=== PATIENT | male | born 1960 | race Hispanic/Latino ===

== ENCOUNTER 2019-08-13 06:34 | Day surgery (SDC) | payer MEDICAID ==
[~2019-08-13] VITALS: Ht 167.6 cm; Wt 75.7 kg
[~2019-08-13 06:34] MED LIST: FERS325 PO; FURO20TA4 PO; LACT10SO9 PO; OMEP-50 PO; PROP10TA10 PO; SODIUM CHLORIDE 0.9% 1000ML 0 ML IV ONE; SODIUM CHLORIDE 0.9% 1000ML 1,000 ML IV ONE; SPIR25TA6 PO
[2019-08-13] MEDS ORDERED: SERT25TA5 PO (08:07)
[2019-08-13] MEDS ORDERED: VITAMIN B 12 PO (08:07)
[2019-08-13 08:22] VITALS: BP 129/73
[2019-08-13 08:22] LABS: BASOPHILS % (AUTO) 1.6 % (0.0-5.0); EOSINOPHILS % (AUTO) 5.8 % (0.0-8.0); HEMATOCRIT 45.1 % (42-54); MEAN CORPUSCULAR HEMOGLOBIN 37.8 pg (27.0-33.0); MEAN CORPUSCULAR HGB CONC 34.6 g/dL (32.0-36.0); MEAN CORPUSCULAR VOLUME 109.2 fL (79-99); MONOCYTES % (AUTO) 7.2 % (3.0-13.0); NEUTROPHILS % (AUTO) 48.4 % (40.0-77.0); NUCLEATED RED BLOOD CELLS 0.1 % (0.0-0.19); PLATELET COUNT (AUTO) 129 K/uL (130-400); RED BLOOD CELL COUNT(AUTO) 4.13 MIL/uL (4.50-6.20); RED CELL DISTRIBUTION WIDTH 14.7 % (11.0-15.5); WHITE BLOOD COUNT (AUTO) 4.5 K/uL (4.8-10.8)
[2019-08-13 08:34] LABS: INR 1.28 (0.85-1.15); PROTHROMBIN TIME 13.4 SEC (9.6-11.6)
[2019-08-13] MEDS ORDERED: PROPOFOL 10 MG/ML 20ML VIAL IV ONE (09:07)
== END 2019-08-13 10:20 | disposition home or self-care (01) ==
LOC: ENDO 06:34 → DAH 06:34 → ENDO 10:20
PROVIDERS: ATTEND Internal Medicine
DX: K29.50 Unspecified chronic gastritis without bleeding (principal); K21.0 Gastro-esophageal reflux disease with esophagitis; K25.9 Gastric ulcer, unspecified as acute or chronic, without hemorrhage or perforation; F17.210 Nicotine dependence, cigarettes, uncomplicated; B18.2 Chronic viral hepatitis C; F31.89 Other bipolar disorder; K74.60 Unspecified cirrhosis of liver; F19.20 Other psychoactive substance dependence, uncomplicated; Z72.89 Other problems related to lifestyle; Z90.49 Acquired absence of other specified parts of digestive tract; Z98.890 Other specified postprocedural states; Z79.899 Other long term (current) drug therapy; Z82.49 Family history of ischemic heart disease and other diseases of the circulatory system
CPT/HCPCS: 36415; 43239; 85025; 85610; 88305; A4606; J2704; J7030

== ENCOUNTER 2022-05-17 08:26 | Emergency (ER) | payer MEDICAID ==
[~2022-05-17] VITALS: Ht 165.1 cm; Wt 74.8 kg
[~2022-05-17 08:26] MED LIST changes: -OMEP-50 PO; +OMEP20CA12 PO; +SERT-438 PO; -SODIUM CHLORIDE 0.9% 1000ML 0 ML IV ONE; -SODIUM CHLORIDE 0.9% 1000ML 1,000 ML IV ONE; +VITAMIN B 12 PO
[2022-05-17] MEDS ORDERED: KETOROLAC 30MG VIAL (30MG/ML) IM ONE (09:30)
[2022-05-17] MEDS ORDERED: ORPHENADRINE CITRATE 30 MG/ML ML IM ONE (12:00)
[2022-05-17] MEDS ORDERED: LIDOCAINE 5% TOPICAL PATCH TP ONE (12:00)
[2022-05-17] MEDS ORDERED: CYCL5TAB PO (13:49)
[2022-05-17 13:57] VITALS: BP 142/58
[2022-05-19] MEDS ORDERED: TRAM50TA4 PO (10:13)
== END 2022-05-17 13:59 | disposition home or self-care (01) ==
LOC: EDH 08:26
DX: M62.838 Other muscle spasm (principal); T50.B95A Adverse effect of other viral vaccines, initial encounter; N18.9 Chronic kidney disease, unspecified; Z79.1 Long term (current) use of non-steroidal anti-inflammatories (NSAID); Z79.899 Other long term (current) drug therapy; Z90.49 Acquired absence of other specified parts of digestive tract; Y92.89 Other specified places as the place of occurrence of the external cause
CPT/HCPCS: 96372 ×2; 99284; J1885; J2360

== ENCOUNTER 2022-05-25 21:26 | Emergency (ER) | payer MEDICAID ==
[~2022-05-25] VITALS: Ht 165.1 cm; Wt 77.1 kg
[~2022-05-25 21:26] MED LIST changes: +CYCL5TAB PO; +TRAM50TA4 PO
[2022-05-25] MEDS ORDERED: HYDROCODONE/ACETAMINOPHEN 5/325 MG TAB PO ONE (22:00)
[2022-05-25] MEDS ORDERED: CYCLOBENZAPRINE HCL 10 MG TABLET PO ONE (22:00)
[2022-05-25] MEDS ORDERED: ACET-2247 PO (22:02)
[2022-05-25] MEDS ORDERED: CYCL10TA16 PO (22:04)
[2022-05-25 22:09] VITALS: BP 139/81
[2022-05-26] MEDS ORDERED: ALBU8.5H8 IH (08:41)
[2022-05-27] MEDS ORDERED: FOLI1 PO (01:31)
== END 2022-05-25 22:22 | disposition home or self-care (01) ==
LOC: EDH 21:26
DX: M25.50 Pain in unspecified joint (principal); G89.29 Other chronic pain; I11.0 Hypertensive heart disease with heart failure; I50.9 Heart failure, unspecified; F32.A Depression, unspecified; K21.9 Gastro-esophageal reflux disease without esophagitis; F17.200 Nicotine dependence, unspecified, uncomplicated; Z79.899 Other long term (current) drug therapy; Z90.49 Acquired absence of other specified parts of digestive tract

== ENCOUNTER 2022-08-06 19:24 | Emergency (ER) | payer MEDICAID ==
[~2022-08-06] VITALS: Ht 165.1 cm; Wt 93.0 kg
[~2022-08-06 19:24] MED LIST changes: +ALBU8.5H8 IH; -CYCL5TAB PO; +FOLI1 PO; -PROP10TA10 PO; -TRAM50TA4 PO
[2022-08-06 19:58] LABS: HEMATOCRIT 29.6 % (42-54); MEAN CORPUSCULAR HGB CONC 33.1 g/dL (32.0-36.0); MEAN CORPUSCULAR VOLUME 108.8 fL (79-99); PLATELET COUNT (AUTO) 136 K/uL (130-400); RED BLOOD CELL COUNT(AUTO) 2.72 MIL/uL (4.50-6.20); RED CELL DISTRIBUTION WIDTH 15.9 % (11.0-15.5); WHITE BLOOD COUNT (AUTO) 5.6 K/uL (4.8-10.8)
[2022-08-06 20:08] LABS: POTASSIUM 4.4 mmol/L (3.5-5.1)
[2022-08-06 20:14] LABS: TOTAL PROTEIN, SERUM 6.8 g/dL (6.0-8.3)
[2022-08-06 20:19] LABS: APPEARANCE,URINE CLEAR (CLEAR); BILIRUBIN,URINE NEGATIVE (NEGATIVE); COLOR,URINE YELLOW (YELLOW); GLUCOSE, URINE (UA) NEGATIVE (NEGATIVE); KETONES,URINE NEGATIVE (NEGATIVE); LEUKOCYTE ESTERASE ,URINE NEGATIVE (NEGATIVE); NITRATE,URINE NEGATIVE (NEGATIVE); OCCULT BLOOD,URINE MODERATE (NEGATIVE); PROTEIN,URINE NEGATIVE (NEGATIVE)
[2022-08-06 20:48] LABS: BASOPHILS % (MANUAL) 1 % (0-2); EOSINOPHILS % (MANUAL) 10 % (1-6); LYMPHOCYTES % (MANUAL) 23 % (22-44); MAN.DIFF COMMENT-IMPRESSION MANUAL DIFFERENTIAL; MONOCYTES % (MANUAL) 11 % (2-9); PLATELET MORPHOLOGY COMMENT ADEQUATE; SEGMENTED NEUTROPHILS % 55 % (40-70)
[2022-08-06 20:59] LABS: BACTERIA,URINE None Seen /HPF (None Seen); RBC,URINE None Seen /HPF (0-1); SQUAMOUS EPITHELIAL CELL,UR None Seen /HPF (0-2); WBC,URINE 0-1 /HPF (0-1)
[2022-08-06] MEDS ORDERED: LIDO1ADH71 TP (21:20)
[2022-08-06] MEDS ORDERED: PROP10TA10 PO (21:20)
[2022-08-06] MEDS ORDERED: IPRA3AMP24 IH (21:20)
[2022-08-06] MEDS ORDERED: FERR-72 PO (21:20)
[2022-08-06] MEDS ORDERED: SIME180C35 PO (21:20)
[2022-08-06] MEDS ORDERED: MELA3TAB43 PO (21:20)
[2022-08-06] MEDS ORDERED: ACET-2079 PO (21:20)
[2022-08-06] MEDS ORDERED: OMEP20CA12 PO (21:20)
[2022-08-06] MEDS ORDERED: MULT-1367 PO (21:20)
[2022-08-06 21:31] LABS: INR 1.26 (0.85-1.15); PROTHROMBIN TIME 13.6 SEC (9.6-11.6)
[2022-08-06] MEDS ORDERED: FUROSEMIDE 40MG VIAL ONE (21:44)
[2022-08-06] MEDS ORDERED: FUROSEMIDE 40MG VIAL IV ONE (22:00)
[2022-08-06 23:01] VITALS: BP 115/55
== END 2022-08-07 00:33 | disposition home or self-care (01) ==
LOC: EDH 19:24
DX: K74.60 Unspecified cirrhosis of liver (principal); Z20.822 Contact with and (suspected) exposure to COVID-19; R14.0 Abdominal distension (gaseous); M19.90 Unspecified osteoarthritis, unspecified site; F32.A Depression, unspecified; F17.200 Nicotine dependence, unspecified, uncomplicated; Z79.899 Other long term (current) drug therapy; Z90.49 Acquired absence of other specified parts of digestive tract
CPT/HCPCS: 99285; 96374; 71045; 87426; 80053; 83880; 85025; 85610; 87804 ×2; 81001; 36415; 93005; J1940

== ENCOUNTER 2022-08-08 14:10 | Inpatient (IN) | payer MEDICAID ==
[~2022-08-08] VITALS: Ht 165.1 cm; Wt 93.8 kg
[~2022-08-08 14:10] MED LIST changes: +ACET-2079 PO; +FERR-72 PO; +IPRA3AMP24 IH; +LIDO1ADH71 TP; +MELA3TAB43 PO; +MULT-1367 PO; +PROP10TA10 PO; +SIME180C35 PO
[2022-08-08 15:40] LABS: BASOPHILS % (AUTO) 1.2 % (0.0-5.0); EOSINOPHILS % (AUTO) 10.9 % (0.0-8.0); HEMATOCRIT 29.4 % (42-54); LYMPHOCYTES % (AUTO) 30.5 % (21.0-51.0); MEAN CORPUSCULAR HEMOGLOBIN 36.8 pg (27.0-33.0); MEAN CORPUSCULAR VOLUME 108.1 fL (79-99); MONOCYTES % (AUTO) 9.6 % (3.0-13.0); NEUTROPHILS % (AUTO) 47.4 % (40.0-77.0); PLATELET COUNT (AUTO) 126 K/uL (130-400); RED BLOOD CELL COUNT(AUTO) 2.72 MIL/uL (4.50-6.20); RED CELL DISTRIBUTION WIDTH 15.8 % (11.0-15.5); WHITE BLOOD COUNT (AUTO) 4.9 K/uL (4.8-10.8)
[2022-08-08 15:50] LABS: INR 1.3 (0.85-1.15)
[2022-08-08 15:51] LABS: PARTIAL THROMBOPLASTIN TIME 33.7 SEC (26.3-35.5)
[2022-08-08] MEDS ORDERED: POTASSIUM BICARB/CIT AC 25 MEQ TABLET.EFF ONE (15:55)
[2022-08-08] MEDS ORDERED: SOLU-MEDROL 125MG VIAL ONE (15:55)
[2022-08-08 15:57] LABS: CREATININE 1.2 mg/dL (0.5-1.5); POTASSIUM 4.2 mmol/L (3.5-5.1)
[2022-08-08 16:02] LABS: TOTAL PROTEIN, SERUM 6.7 g/dL (6.0-8.3)
[2022-08-08] MEDS ORDERED: MAG/ALUM/SIMETH 30 ML UDCUP PO PRN (17:30)
[2022-08-08] MEDS ORDERED: LACTULOSE 20 GM/30 ML UDCUP PO PRN (17:30)
[2022-08-08] MEDS ORDERED: NITROGLYCERIN 0.4 MG SL TAB SL PRN (17:30)
[2022-08-08] MEDS ORDERED: DiphenhydrAMINE HCL 50 MG/ML VIAL IV PRN (17:30)
[2022-08-08] MEDS ORDERED: GUAIFENESIN-DM 200/20 MG 10 ML PO PRN (17:30)
[2022-08-08] MEDS ORDERED: SIMETHICONE 80 MG TAB.CHEW PO PRN (17:30)
[2022-08-08] MEDS: CEFTRIAXONE 1G VIAL IV SCH (17:30)
[2022-08-08] MEDS ORDERED: MELATONIN 6 MG PO PRN (17:30)
[2022-08-08] MEDS ORDERED: ONDANSETRON 4MG INJ IV PRN (17:30)
[2022-08-08] MEDS ORDERED: HEPARIN 5,000 UNIT VIAL ONE (19:28)
[2022-08-08] MEDS ORDERED: FAMOTIDINE 20MG VIAL IV ONE (19:28)
[2022-08-08] MEDS ORDERED: LIDOCAINE 5% TOPICAL PATCH TP ONE (19:28)
[2022-08-08] MEDS: LACTULOSE 20 GM/30 ML UDCUP PO SCH (20:25)
[2022-08-08] MEDS: LIDOCAINE 5% TOPICAL PATCH TP SCH (20:25)
[2022-08-08] MEDS: FAMOTIDINE 20MG VIAL IV SCH (20:25)
[2022-08-08] MEDS: HEPARIN 5,000 UNIT VIAL SQ SCH (20:25)
[2022-08-08] MEDS ORDERED: FAMOTIDINE 20MG VIAL IV SCH (21:00)
[2022-08-08] MEDS: SPIRONOLACTONE 25 MG TAB PO SCH (21:25)
[2022-08-08 22:01] VITALS: BP 119/57
[2022-08-08] MEDS: PROPRANOLOL HCL 10 MG TAB PO SCH (22:48)
[2022-08-08] MEDS ORDERED: HYDROCODONE/ACETAMINOPHEN 5/325 MG TAB PO PRN (23:00)
[2022-08-08 23:54] VITALS: BP 100/60
[2022-08-09 03:53] VITALS: BP 93/52
[2022-08-09 05:03] LABS: BASOPHILS % (AUTO) 1.1 % (0.0-5.0); EOSINOPHILS % (AUTO) 10.9 % (0.0-8.0); HEMATOCRIT 26.2 % (42-54); LYMPHOCYTES % (AUTO) 33.2 % (21.0-51.0); MEAN CORPUSCULAR HEMOGLOBIN 36.2 pg (27.0-33.0); MEAN CORPUSCULAR HGB CONC 33.6 g/dL (32.0-36.0); MEAN CORPUSCULAR VOLUME 107.8 fL (79-99); MONOCYTES % (AUTO) 12.5 % (3.0-13.0); NEUTROPHILS % (AUTO) 41.6 % (40.0-77.0); PLATELET COUNT (AUTO) 116 K/uL (130-400); RED BLOOD CELL COUNT(AUTO) 2.43 MIL/uL (4.50-6.20); RED CELL DISTRIBUTION WIDTH 15.6 % (11.0-15.5); WHITE BLOOD COUNT (AUTO) 4.5 K/uL (4.8-10.8)
[2022-08-09 05:18] LABS: ALBUMIN 1.8 g/dL (3.5-5.0); CREATININE 1.1 mg/dL (0.5-1.5); POTASSIUM 4.2 mmol/L (3.5-5.1); TOTAL PROTEIN, SERUM 6.1 g/dL (6.0-8.3)
[2022-08-09 07:07] VITALS: BP 114/58
[2022-08-09] MEDS: SPIRONOLACTONE 25 MG TAB PO SCH ×2 (09:24→21:44)
[2022-08-09] MEDS: LIDOCAINE 5% TOPICAL PATCH TP SCH (09:24)
[2022-08-09] MEDS: FAMOTIDINE 20MG VIAL IV SCH ×2 (09:24→21:43)
[2022-08-09] MEDS: PROPRANOLOL HCL 10 MG TAB PO SCH ×2 (09:25→21:43)
[2022-08-09] MEDS: CYANOCOBALAMIN (VITAMIN B-12) 1,000 MCG TABLET PO SCH (09:25)
[2022-08-09] MEDS: FUROSEMIDE 20 MG TABLET PO SCH (09:25)
[2022-08-09] MEDS: MULTIVITAMIN TABLET PO SCH (09:25)
[2022-08-09] MEDS: SERTRALINE HCL 50 MG TABLET PO SCH (09:25)
[2022-08-09] MEDS: LACTULOSE 20 GM/30 ML UDCUP PO SCH ×2 (09:26→21:43)
[2022-08-09] MEDS: HEPARIN 5,000 UNIT VIAL SQ SCH ×3 (09:38→21:00)
[2022-08-09 12:28] VITALS: BP 92/53
[2022-08-09 16:18] VITALS: BP 99/39
[2022-08-09] MEDS: CEFTRIAXONE 1G VIAL IV SCH (18:09)
[2022-08-09 19:58] VITALS: BP 96/46
[2022-08-10 00:06] VITALS: BP 108/61
[2022-08-10 04:16] VITALS: BP 96/57
[2022-08-10 05:26] LABS: EOSINOPHILS % (AUTO) 9.9 % (0.0-8.0); HEMATOCRIT 27.2 % (42-54); LYMPHOCYTES % (AUTO) 33.9 % (21.0-51.0); MEAN CORPUSCULAR HGB CONC 33.5 g/dL (32.0-36.0); MEAN CORPUSCULAR VOLUME 107.5 fL (79-99); MONOCYTES % (AUTO) 10.1 % (3.0-13.0); NEUTROPHILS % (AUTO) 44.9 % (40.0-77.0); PLATELET COUNT (AUTO) 116 K/uL (130-400); RED BLOOD CELL COUNT(AUTO) 2.53 MIL/uL (4.50-6.20); RED CELL DISTRIBUTION WIDTH 15.6 % (11.0-15.5)
[2022-08-10 05:41] LABS: ALBUMIN 1.8 g/dL (3.5-5.0); CREATININE 1.1 mg/dL (0.5-1.5); POTASSIUM 4.3 mmol/L (3.5-5.1); TOTAL PROTEIN, SERUM 6.1 g/dL (6.0-8.3)
[2022-08-10 07:47] VITALS: BP 102/51
[2022-08-10] MEDS: HEPARIN 5,000 UNIT VIAL SQ SCH ×2 (09:00→14:00)
[2022-08-10] MEDS: PROPRANOLOL HCL 10 MG TAB PO SCH (09:00)
[2022-08-10] MEDS: MULTIVITAMIN TABLET PO SCH (09:53)
[2022-08-10] MEDS: FAMOTIDINE 20MG VIAL IV SCH (09:53)
[2022-08-10] MEDS: FUROSEMIDE 20 MG TABLET PO SCH (09:54)
[2022-08-10] MEDS: SPIRONOLACTONE 25 MG TAB PO SCH (09:54)
[2022-08-10] MEDS: SERTRALINE HCL 50 MG TABLET PO SCH (09:55)
[2022-08-10] MEDS: CYANOCOBALAMIN (VITAMIN B-12) 1,000 MCG TABLET PO SCH (09:55)
[2022-08-10] MEDS: LIDOCAINE 5% TOPICAL PATCH TP SCH (09:56)
[2022-08-10] MEDS: LACTULOSE 20 GM/30 ML UDCUP PO SCH (09:57)
[2022-08-10 11:45] VITALS: BP 127/67
[2022-08-10 16:49] VITALS: BP_SYST 129; BP_SYST 140; BP_DIAS 45; BP_DIAS 62
[2022-08-10] MEDS: CEFTRIAXONE 1G VIAL IV SCH (18:04)
== END 2022-08-10 18:15 | DRG 280 ==
LOC: EDH 14:10 → EDHIP 14:11 → 3CH 21:28
PROVIDERS: ADMIT Internal Medicine; ATTEND Internal Medicine
DX: K70.30 Alcoholic cirrhosis of liver without ascites (principal); D68.9 Coagulation defect, unspecified; D69.6 Thrombocytopenia, unspecified; F32.9 Major depressive disorder, single episode, unspecified; D64.9 Anemia, unspecified; F19.10 Other psychoactive substance abuse, uncomplicated; Z90.49 Acquired absence of other specified parts of digestive tract
CPT/HCPCS: 36415; 71045; 80053; 80305; 81001; 82140; 82948; 83880; 85025; 85610; 85730; 87426; 87804; 93005; 96374; G0378; J0696; J1644; J1940; J2930; J3490

== ENCOUNTER 2022-12-01 17:07 | Emergency (ER) | payer MEDICAID ==
[~2022-12-01] VITALS: Ht 175.3 cm; Wt 81.6 kg
[2022-12-01 18:05] LABS: APPEARANCE,URINE CLEAR (CLEAR); BILIRUBIN,URINE NEGATIVE (NEGATIVE); COLOR,URINE YELLOW (YELLOW); GLUCOSE, URINE (UA) NEGATIVE (NEGATIVE); KETONES,URINE NEGATIVE (NEGATIVE); LEUKOCYTE ESTERASE ,URINE NEGATIVE Leu/uL (NEGATIVE); NITRATE,URINE NEGATIVE (NEGATIVE); PH,URINE 6.5 (5.0-8.0); PROTEIN,URINE NEGATIVE (NEGATIVE)
[2022-12-01 18:12] VITALS: BP 136/72
[2022-12-01 18:13] LABS: HEMATOCRIT 32.7 % (42-54); MEAN CORPUSCULAR HEMOGLOBIN 36.5 pg (27.0-33.0); MEAN CORPUSCULAR HGB CONC 35.2 g/dL (32.0-36.0); MEAN CORPUSCULAR VOLUME 103.8 fL (79-99); RED BLOOD CELL COUNT(AUTO) 3.15 MIL/uL (4.50-6.20); RED CELL DISTRIBUTION WIDTH 14.2 % (11.0-15.5); WHITE BLOOD COUNT (AUTO) 5.1 K/uL (4.8-10.8)
[2022-12-01 18:29] LABS: ALBUMIN 2.4 g/dL (3.5-5.0); TOTAL PROTEIN, SERUM 6.4 g/dL (6.0-8.3)
[2022-12-01 18:30] LABS: MUCUS,URINE RARE LPF (None Seen); SQUAMOUS EPITHELIAL CELL,UR RARE /HPF (0-2); WBC,URINE 0-1 /HPF (0-1)
== END 2022-12-01 19:04 | disposition left against medical advice (07) ==
LOC: EDH 17:07
DX: U07.1 COVID-19 (principal); R50.9 Fever, unspecified; Z53.21 Procedure and treatment not carried out due to patient leaving prior to being seen by health care provider
CPT/HCPCS: 87635; 80053; 82140; 85027; 87804 ×2; 81001; 36415; C9803

== ENCOUNTER 2023-04-12 12:36 | Emergency (ER) | payer MEDICAID ==
[~2023-04-12] VITALS: Ht 165.1 cm; Wt 72.6 kg
[2023-04-12 13:22] LABS: BASOPHILS % (AUTO) 2.2 % (0.0-5.0); EOSINOPHILS % (AUTO) 4.3 % (0.0-8.0); HEMATOCRIT 39.3 % (42-54); LYMPHOCYTES % (AUTO) 38.7 % (21.0-51.0); MEAN CORPUSCULAR HEMOGLOBIN 35.2 pg (27.0-33.0); MEAN CORPUSCULAR HGB CONC 33.3 g/dL (32.0-36.0); MEAN CORPUSCULAR VOLUME 105.6 fL (79-99); MONOCYTES % (AUTO) 10.2 % (3.0-13.0); NEUTROPHILS % (AUTO) 44.2 % (40.0-77.0); PLATELET COUNT (AUTO) 177 K/uL (130-400); RED BLOOD CELL COUNT(AUTO) 3.72 MIL/uL (4.50-6.20); WHITE BLOOD COUNT (AUTO) 4.6 K/uL (4.8-10.8)
[2023-04-12 13:34] LABS: INR 1.31 (0.85-1.15); PROTHROMBIN TIME 14.1 SEC (9.6-11.6)
[2023-04-12 13:35] LABS: PARTIAL THROMBOPLASTIN TIME 31.8 SEC (26.3-35.5)
[2023-04-12 13:41] LABS: CREATININE 0.8 mg/dL (0.5-1.5); POTASSIUM 3.9 mmol/L (3.5-5.1)
[2023-04-12 13:46] LABS: ALBUMIN 2.5 g/dL (3.5-5.0); TOTAL PROTEIN, SERUM 6.6 g/dL (6.0-8.3)
[2023-04-12 14:08] LABS: B-TYPE NATRIURETIC PEPTIDE 58 pg/mL (0-100)
[2023-04-12 16:28] VITALS: BP 116/59
[2023-04-12 16:32] LABS: APPEARANCE,URINE CLEAR (CLEAR); BILIRUBIN,URINE NEGATIVE (NEGATIVE); COLOR,URINE YELLOW (YELLOW); GLUCOSE, URINE (UA) NEGATIVE (NEGATIVE); KETONES,URINE NEGATIVE (NEGATIVE); LEUKOCYTE ESTERASE ,URINE NEGATIVE Leu/uL (NEGATIVE); NITRATE,URINE NEGATIVE (NEGATIVE); OCCULT BLOOD,URINE NEGATIVE (NEGATIVE); PROTEIN,URINE NEGATIVE (NEGATIVE); UROBILINOGEN,URINE 0.2 mg/dL (0.2-1.0)
[2023-04-12 16:35] LABS: BACTERIA,URINE RARE /HPF (None Seen); MUCUS,URINE RARE LPF (None Seen); SQUAMOUS EPITHELIAL CELL,UR RARE /HPF (0-2)
== END 2023-04-12 16:55 | disposition home or self-care (01) ==
LOC: EDH 12:36
DX: R53.1 Weakness (principal); R42 Dizziness and giddiness; R06.02 Shortness of breath; R10.9 Unspecified abdominal pain; J45.909 Unspecified asthma, uncomplicated; Z20.822 Contact with and (suspected) exposure to COVID-19; Z90.89 Acquired absence of other organs; Z98.890 Other specified postprocedural states
CPT/HCPCS: 36415; 71045; 80053; 81001; 82550; 83880; 84484; 85025; 85610; 85730; 87426; 87804; 93005